=== PATIENT | male | born 1965 | race American Indian/Alaskan Native ===

== ENCOUNTER 2017-08-03 22:21 | Emergency (ER) | payer OTHER ==
[~2017-08-03] VITALS: Ht 167.6 cm; Wt 95.2 kg
[~2017-08-03 22:21] MED LIST: ABILIFY5 MG; ACETAMINOPHEN325 M1 PO; ASPIR 8181 MG PO; AUGMENTIN 875-1 EACH PO; DIAZEPAM5 MG PO; HYDROCHLOROTHIA25 MG PO; HYDROCODON-ACE1 EAC8 PO; HYDROPHILIC120 GM TOP; KLOR-CON M2020 MEQ PO; LIPITOR20 MG PO; LISINOPRIL20 MG PO; LORATADINE10 MG PO; MOMETASONE FURO30 ML INH; NAPROXEN500 MG PO; PEPCID20 MG PO; PERCOCET 7.5-31 EACH PO; PROZAC20 MG PO; TOPROL XL50 MG PO; VENTOLIN HFA18 GM IH; ZYLOPRIM300 MG PO
== END 2017-08-04 01:05 | disposition short-term general hospital (02) ==
LOC: ED 22:21
DX: K92.2 Gastrointestinal hemorrhage, unspecified (principal); K72.90 Hepatic failure, unspecified without coma; J45.909 Unspecified asthma, uncomplicated; I10 Essential (primary) hypertension; Z98.890 Other specified postprocedural states; Z79.82 Long term (current) use of aspirin; Z79.899 Other long term (current) drug therapy
CPT/HCPCS: 70450; 80053; 82140; 85025; 85610; 85730; 86850; 86900; 86901; 96374; 96375; 96376; 99285; G0480; J2060; J2354; J2405; J7030; J7050